=== PATIENT | female | born 1950 | race African-American/Black ===

== ENCOUNTER 2017-10-12 14:24 | Emergency (ER) | payer MEDICARE, OTHER ==
--- NOTE | 2017-10-12 14:48 | ED Physician Documentation ---
General Adult - HISTORIAN Historian: patient - HPI Stated Complaint: ear ache Chief Complaint: General Adult Onset: days ago (2) Timing: still present Severity: moderate Further Comments: yes (Pt is a 67 yo female with L ear pain. Pt felt dizzy this am and had to hold onto the sink to steady herself in the bathroom. Pt has had nausea but no vomiting. No sore throat. Pt denies feeling feverish.) - ROS CONST: weakness EYES/ENT: other (L ear pain) CVS/RESP: none GI/: nausea MS/SKIN/LYMPH: none - PAST HX Past History: hypertension Allergies/Adverse Reactions: Allergies Allergy/AdvReac Type Severity Reaction Status Date / Time No Known Drug Allergies Allergy Unknown Verified 10/12/17 14:52 Home Medications: Ambulatory Orders Medication Instructions Recorded Amoxicillin [Trimox] 500 mg PO TID #30 capsule 10/12/17 - SOCIAL HX Smoking History: cigarettes - FAMILY HX Family History: No - REVIEWED ASSESSMENTS Nursing Assessment Reviewed: Yes Vitals Reviewed: Yes Progress - Progress Progress: Orthostatics Lying 155/83 HR 85 Sitting 150/88 HR 92 Standing 137/91 HR 96 NS 1 L IVF TM's not well seen due to cerumen ears irrigated, cerumen still seen, but pt did not wish to continue. Rx amoxicillin for possible otitis media. Rx Amoxicillin 500 mg. Take one every 8 hrs for 10 days. - EKG/XRAY/CT EKG: NSR (HR=89; normal LA interval; normal axis; possible LVH by voltage.) General Adult Physical Exam - PHYSICAL EXAM GENERAL APPEARANCE: mild distress EENT: pharynx normal, other (TM's not visible due to cerumen) CVS: reg rate & rhythm, heart sounds normal ABDOMEN: soft, no organomegaly, normal bowel sounds BACK: normal inspection, no CVA tenderness SKIN: warm/dry, normal color EXTREMITIES: non-tender, normal range of motion, no evidence of injury NEURO: oriented X3, motor nml, sensation nml Discharge Clincal Impression: Dehydration, possible L otitis media Prescriptions: Amoxicillin [Trimox] 500 mg PO TID #30 capsule Referrals: Shiv Diana MD [STAFF PHYSICIAN] - Disposition: 01 HOME, SELF-CARE Decision to Admit: NO Decision Time: 17:25
[2017-10-12] MEDS ORDERED: CARBAMIDE PEROXIDE OTIC SUSP OT ONE ×2 (15:15→15:28)
[2017-10-12] MEDS ORDERED: 0.9 % SODIUM CHLORIDE 1,000 ML IV ONE (15:27)
[2017-10-12 16:29] LABS: BASOPHILS % 0.3 (0.0-1.5); EOSINOPHILS % 1.8 % (0.0-6.8); MEAN CORPUSCULAR HEMOGLOBIN 32.5 pg (28.0-34.0); MEAN CORPUSCULAR VOLUME 100.5 fl (80.0-100.0); MONOCYTES % 2.4 % (0.0-11.0); NEUTROPHILS # 9.7 # k/uL (1.4-7.7)
[2017-10-12 16:48] LABS: eGFR (African) > 60; eGFR (Non-African) > 60
[2017-10-12 17:22] VITALS: BP 136/82
[2017-10-13 07:35] LABS: APPEARANCE,URINE CLEAR (CLEAR); COLOR,URINE YELLOW (YELLOW)
[2017-10-13 07:36] LABS: OCCULT BLOOD,URINE NEGATIVE (NEGATIVE)
== END 2017-10-12 17:21 | disposition home or self-care (01) ==
LOC: ED 14:24
DX: E86.0 Dehydration (principal); H92.02 Otalgia, left ear
CPT/HCPCS: 80053; 81002; 82550; 84484; 85025; 96360; 99283; J7030; S1016